=== PATIENT | male | born 1950 | race Asian ===

== ENCOUNTER 2019-12-12 19:58 | Inpatient (IN) | payer MEDICARE, OTHER ==
[~2019-12-12] VITALS: Ht 157.5 cm; Wt 65.6 kg
[2019-12-12] MEDS ORDERED: Morphine Sulfate 2mg/ml Inj(IV/IM USE ONLY) IVP ONE (20:15)
[2019-12-12] MEDS ORDERED: Ketorolac 60mg Inj IM ONE (20:30)
--- NOTE | 2019-12-12 20:43 | Emergency Room Report ---
History of Present Illness General Chief Complaint: Lower Extremity Injury Source: Patient Present Illness HPI Patient is a 69-year-old male who presents after increased left lower extremity pain. Patient had a fall injury while walking. Patient states that he had twisted his ankle and had felt that it had become unstable. Patient had been brought in by EMS. Has been unable to bear weight. Denies any other injuries other than his lower extremity. Prior history of type 2 diabetes. Denies any lacerations. 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 Patient History Past Medical History: see triage record Reviewed Nursing Documentation: PMH: Agreed; PSxH: Agreed Nursing Documentation-PMH Past Medical History: No History, Except For Hx Diabetes: Yes Review of Systems All Other Systems: negative except mentioned in HPI Physical Exam Vital Signs Date Time Temp Pulse Resp B/P (MAP) Pulse Ox O2 Delivery O2 Flow Rate FiO2 12/12/19 19:59 98.2 80 16 140/72 (94) 100 Room Air General Appearance: well appearing, no apparent distress, alert, GCS 15 Head: normocephalic, atraumatic ENT: hearing grossly normal, normal voice Neck: full range of motion, supple Respiratory: no respiratory distress, speaking full sentences Cardiovascular #1: normal inspection, no edema Gastrointestinal: normal inspection, soft Musculoskeletal: other - Deformity, swelling left ankle Neurologic: alert, motor strength/tone normal, armor reconnaissance specialist III-XII nml as tested, oriented x3, other - Able to wiggle toes Psychiatric: mood/affect normal Skin: no rash Medical Decision Making Diagnostic Impression: Primary Impression: Ankle fracture, left Additional Impressions: Fall Diabetes ER Course Patient presented for ankle pain. Differential diagnosis include was not limited to fracture, dislocation, sprain among others. X-ray imaging showed trimalleolar fracture with some slight subluxation posteriorly. Patient was placed in a 3 sided splint. He was noted to be neuro vascularly intact. Patient was placed in a 3 sided splint. He was noted to have some pain to the left foot and patient was given pain medications. Patient was neurovascular intact after splinting. He was noted to have improvement in pain after splinting and elevation. Dr. Rajendra Parker was contacted for inpatient management. Dr. Todd Amaya was contacted for orthopedic consult. Labs Test 12/12/19 20:18 White Blood Count 8.0 K/UL (4.8-10.8) Red Blood Count 4.50 M/UL (4.70-6.10) Hemoglobin 14.6 G/DL (14.2-18.0) Hematocrit 42.8 % (42.0-52.0) Mean Corpuscular Volume 95 FL (80-99) Mean Corpuscular Hemoglobin 32.5 PG (27.0-31.0) Mean Corpuscular Hemoglobin Concent 34.2 G/DL (32.0-36.0) Red Cell Distribution Width 11.5 % (11.6-14.8) Platelet Count 193 K/UL (150-450) Mean Platelet Volume 6.3 FL (6.5-10.1) Neutrophils (%) (Auto) 75.4 % (45.0-75.0) Lymphocytes (%) (Auto) 15.0 % (20.0-45.0) Monocytes (%) (Auto) 7.8 % (1.0-10.0) Eosinophils (%) (Auto) 0.7 % (0.0-3.0) Basophils (%) (Auto) 1.0 % (0.0-2.0) Prothrombin Time 11.0 SEC (9.30-11.50) Prothromb Time International Ratio 1.0 (0.9-1.1) Activated Partial Thromboplast Time 26 SEC (23-33) Sodium Level 140 MMOL/L (136-145) Potassium Level 3.7 MMOL/L (3.5-5.1) Chloride Level 103 MMOL/L (98-107) Carbon Dioxide Level 27 MMOL/L (21-32) Anion Gap 10 mmol/L (5-15) Blood Urea Nitrogen 21 mg/dL (7-18) Creatinine 1.3 MG/DL (0.55-1.30) Estimat Glomerular Filtration Rate 54.6 mL/min (>60) Glucose Level 201 MG/DL (74-106) Calcium Level 8.9 MG/DL (8.5-10.1) Total Bilirubin 0.5 MG/DL (0.2-1.0) Aspartate Amino Transf (AST/SGOT) 15 U/L (15-37) Alanine Aminotransferase (ALT/SGPT) 30 U/L (12-78) Alkaline Phosphatase 78 U/L (46-116) Total Protein 7.0 G/DL (6.4-8.2) Albumin 3.9 G/DL (3.4-5.0) Globulin 3.1 g/dL Albumin/Globulin Ratio 1.3 (1.0-2.7) Last Vital Signs Date Time Temp Pulse Resp B/P (MAP) Pulse Ox O2 Delivery O2 Flow Rate FiO2 12/12/19 19:59 98.2 80 16 140/72 (94) 100 Room Air Status: improved Disposition: HOME, SELF-CARE Condition: Stable Referrals: NON PHYSICIAN (PCP) Anthony Eduardo MD Dec 12, 2019 20:43
[2019-12-12 21:12] LABS: EOSINOPHILS % (AUTO) 0.7 % (0.0-3.0); HEMATOCRIT 42.8 % (42.0-52.0); HEMOGLOBIN 14.6 G/DL (14.2-18.0); MEAN CORPUSCULAR VOLUME 95 FL (80-99); MONOCYTES % (AUTO) 7.8 % (1.0-10.0); NEUTROPHILS % (AUTO) 75.4 % (45.0-75.0); PLATELET COUNT 193 K/UL (150-450); RED CELL DISTRIBUTION WIDTH 11.5 % (11.6-14.8)
[2019-12-12 21:33] LABS: ANION GAP 10 mmol/L (5-15); BLOOD UREA NITROGEN 21 mg/dL (7-18); CALCIUM 8.9 MG/DL (8.5-10.1); CARBON DIOXIDE 27 MMOL/L (21-32); CHLORIDE 103 MMOL/L (98-107); CREATININE 1.3 MG/DL (0.55-1.30); POTASSIUM 3.7 MMOL/L (3.5-5.1); SODIUM 140 MMOL/L (136-145)
[2019-12-12] MEDS ORDERED: METFORMIN HCL850 M1 ORAL (21:33)
[2019-12-12] MEDS ORDERED: CRESTOR40 MG ORAL (21:33)
[2019-12-12] MEDS ORDERED: LANTUS SOL100 UNIT/1 SUBQ (21:33)
[2019-12-12] MEDS ORDERED: GLIPIZIDE5 MG ORAL (21:33)
[2019-12-12 21:37] LABS: ALANINE AMINOTRANSFERASE 30 U/L (12-78); ALBUMIN 3.9 G/DL (3.4-5.0); ALBUMIN/GLOBULIN RATIO 1.3 (1.0-2.7); ALKALINE PHOSPHATASE 78 U/L (46-116); ASPARTATE AMINO TRANSFERASE 15 U/L (15-37); BILIRUBIN,TOTAL 0.5 MG/DL (0.2-1.0)
[2019-12-12 22:15] VITALS: BP 125/69
[2019-12-12] MEDS ORDERED: Morphine Sulfate 2mg/ml Inj(IV/IM USE ONLY) IVP PRN (23:00)
[2019-12-13] VITALS: BP 125/68
[2019-12-13 04:00] VITALS: BP 129/70
[2019-12-13] MEDS: NovoLOG Insulin Flexpen SUBQ SCH ×4 (06:07→21:16)
[2019-12-13 08:00] VITALS: BP 126/65
[2019-12-13] MEDS: metFORMIN 500mg tab ORAL SCH (09:06)
[2019-12-13] MEDS: GlipiZIDE 5mg tab ORAL SCH (09:06)
[2019-12-13 09:19] LABS: BASOPHILS % (AUTO) 0.7 % (0.0-2.0); EOSINOPHILS % (AUTO) 0.8 % (0.0-3.0); HEMATOCRIT 38.9 % (42.0-52.0); HEMOGLOBIN 13.5 G/DL (14.2-18.0); LYMPHOCYTES % (AUTO) 17.7 % (20.0-45.0); MEAN CORPUSCULAR VOLUME 93 FL (80-99); MONOCYTES % (AUTO) 6.8 % (1.0-10.0); PLATELET COUNT 164 K/UL (150-450); RED BLOOD COUNT 4.18 M/UL (4.70-6.10); RED CELL DISTRIBUTION WIDTH 11.1 % (11.6-14.8); WHITE BLOOD COUNT 7.1 K/UL (4.8-10.8)
[2019-12-13 09:30] LABS: ANION GAP 6 mmol/L (5-15); BLOOD UREA NITROGEN 23 mg/dL (7-18); CALCIUM 8.6 MG/DL (8.5-10.1); CARBON DIOXIDE 29 MMOL/L (21-32); CHLORIDE 105 MMOL/L (98-107); CREATININE 1.2 MG/DL (0.55-1.30); POTASSIUM 3.5 MMOL/L (3.5-5.1); SODIUM 140 MMOL/L (136-145)
[2019-12-13] MEDS: Heparin 5000 units/ml inj SUBQ SCH ×2 (11:19→21:13)
[2019-12-13 12:00] VITALS: BP 114/56
[2019-12-13] MEDS: Morphine Sulfate 2mg/ml Inj(IV/IM USE ONLY) IVP PRN ×2 (14:44→19:55)
--- NOTE | 2019-12-13 15:00 | History and Physical Report ---
DATE OF ADMISSION: 12/12/2019 DATE AND TIME SEEN: 12/13/2019 at 2 p.m. CONSULTANTS: 1. Milton Bach MD. 2. Jovanni Amaya MD. CHIEF COMPLAINT: Fall, fracture left ankle. BRIEF HISTORY: This is a 69-year-old male, who lives at home, apparently tripped, fell down, struck his left ankle, and had a lot of pain. Came to [place], diagnosed with left ankle fracture. Admitted to medical floor. Currently, calm, in bed. No complaint other than slight ankle pain. No chest pain. No shortness of breath. No nausea, vomiting, or diarrhea. Patient did not lose consciousness or strike head in other way. PAST MEDICAL HISTORY: Diabetes. PAST SURGICAL HISTORY: None. MEDICATIONS: Heparin, glipizide, metformin, morphine, IV fluids, Zofran, ketorolac. ALLERGIES: Denies. SOCIAL HISTORY: Positive smoking. No alcohol. No intravenous drug abuse. FAMILY HISTORY: Noncontributory. PHYSICAL EXAMINATION: GENERAL: Calm in bed, oriented x3, no acute distress. VITAL SIGNS: Temperature is 98 degrees, pulse 78, respirations 21, blood pressure 114/56. CARDIOVASCULAR: No murmur. LUNGS: . ABDOMEN: Bowel sounds distant. EXTREMITIES: No cyanosis or edema. Left ankle in splint. NEUROLOGIC: Patient moves all extremities, but slightly weak. LABORATORY AND DIAGNOSTIC DATA: Labs at this time are hemoglobin and hematocrit 13/30, otherwise CBC is normal. BMP shows BUN 23, glucose 176, otherwise normal. INR is 1.0. ASSESSMENT: 1. Fall. 2. Fracture left ankle. 3. Diabetes. PLAN: 1. Blood sugar, pain control. 2. Dietary followup. 3. PT, dietary evaluation. 4. CBC, BMP in the morning. 5. Pending Cardiology clearance for orthopedic surgery. Rajendra Parker D.O. DR: ROBIN JOB#: [id number] CC:
--- NOTE | 2019-12-13 15:45 | Diagnostic Imaging Report ---
Indication: Left ankle pain Technique: 3 views of the left ankle Comparison: none Findings: There is an oblique fracture of the distal fibula. This is displaced posteriorly and laterally by about 7 mm. There is a transverse minimally displaced fracture of the medial malleolus. There is a minimally displaced posterior malleolar fracture. There is also a small avulsion fracture of the anterior corner of the distal tibia. There is subluxation of the talus laterally as well as widening of the joint space anteriorly. Impression: Trimalleolar fracture with associated slight subluxation of the tibiotalar joint
--- NOTE | 2019-12-13 15:49 | Diagnostic Imaging Report ---
Indication: Chest pain Technique: One view of the chest Comparison: none Findings: Small streaky right perihilar opacity is noted. May represent some atelectasis. Lungs and pleural spaces are otherwise clear. The heart size is normal. Impression: Right perihilar atelectasis No acute process otherwise
[2019-12-13 15:59] VITALS: BP 124/69
--- NOTE | 2019-12-13 17:41 | Cardiac Electrophysiology PN ---
Subjective Subjective Seen and examined.Consult dictated. [id number] No HTN or CAD or CHF. ECG no acute ischemic changes. If Echo shows no critical finding, Cleared at moderate risk in view of age and DM to proceed with Ankle surgery Objective Last 24 Hour Vital Signs Date Time Temp Pulse Resp B/P (MAP) Pulse Ox O2 Delivery O2 Flow Rate FiO2 12/13/19 15:59 97.9 65 20 124/69 (87) 97 12/13/19 15:14 98.1 12/13/19 12:00 98.1 70 21 114/56 (75) 99 12/13/19 09:00 Room Air 12/13/19 08:00 98.3 77 20 126/65 (85) 98 12/13/19 04:00 99.0 71 17 129/70 (89) 95 12/13/19 00:00 99.4 72 18 125/68 (87) 96 12/12/19 23:30 Room Air 12/12/19 22:15 98.9 73 18 125/69 (87) 95 12/12/19 22:12 98.2 78 18 139/75 99 Room Air 12/12/19 21:02 98.2 12/12/19 19:59 98.2 80 16 140/72 (94) 100 Room Air Intake and Output 12/12/19 12/13/19 19:00 07:00 Intake Total 400 ml Output Total 600 ml Balance -200 ml Intake Oral 400 ml Output Urine Total 600 ml Laboratory Tests Test 12/12/19 20:18 12/12/19 22:49 12/13/19 06:07 12/13/19 08:30 White Blood Count 8.0 K/UL (4.8-10.8) 7.1 K/UL (4.8-10.8) Red Blood Count 4.50 M/UL (4.70-6.10) L 4.18 M/UL (4.70-6.10) L Hemoglobin 14.6 G/DL (14.2-18.0) 13.5 G/DL (14.2-18.0) L Hematocrit 42.8 % (42.0-52.0) 38.9 % (42.0-52.0) L Mean Corpuscular Volume 95 FL (80-99) 93 FL (80-99) Mean Corpuscular Hemoglobin 32.5 PG (27.0-31.0) H 32.3 PG (27.0-31.0) H Mean Corpuscular Hemoglobin Concent 34.2 G/DL (32.0-36.0) 34.7 G/DL (32.0-36.0) Red Cell Distribution Width 11.5 % (11.6-14.8) L 11.1 % (11.6-14.8) L Platelet Count 193 K/UL (150-450) 164 K/UL (150-450) Mean Platelet Volume 6.3 FL (6.5-10.1) L 6.1 FL (6.5-10.1) L Neutrophils (%) (Auto) 75.4 % (45.0-75.0) H 74.0 % (45.0-75.0) Lymphocytes (%) (Auto) 15.0 % (20.0-45.0) L 17.7 % (20.0-45.0) L Monocytes (%) (Auto) 7.8 % (1.0-10.0) 6.8 % (1.0-10.0) Eosinophils (%) (Auto) 0.7 % (0.0-3.0) 0.8 % (0.0-3.0) Basophils (%) (Auto) 1.0 % (0.0-2.0) 0.7 % (0.0-2.0) Prothrombin Time 11.0 SEC (9.30-11.50) Prothromb Time International Ratio 1.0 (0.9-1.1) Activated Partial Thromboplast Time 26 SEC (23-33) Sodium Level 140 MMOL/L (136-145) 140 MMOL/L (136-145) Potassium Level 3.7 MMOL/L (3.5-5.1) 3.5 MMOL/L (3.5-5.1) Chloride Level 103 MMOL/L (98-107) 105 MMOL/L (98-107) Carbon Dioxide Level 27 MMOL/L (21-32) 29 MMOL/L (21-32) Anion Gap 10 mmol/L (5-15) 6 mmol/L (5-15) Blood Urea Nitrogen 21 mg/dL (7-18) H 23 mg/dL (7-18) H Creatinine 1.3 MG/DL (0.55-1.30) 1.2 MG/DL (0.55-1.30) Estimat Glomerular Filtration Rate 54.6 mL/min (>60) 59.9 mL/min (>60) Glucose Level 201 MG/DL (74-106) H 176 MG/DL (74-106) H Calcium Level 8.9 MG/DL (8.5-10.1) 8.6 MG/DL (8.5-10.1) Total Bilirubin 0.5 MG/DL (0.2-1.0) Aspartate Amino Transf (AST/SGOT) 15 U/L (15-37) Alanine Aminotransferase (ALT/SGPT) 30 U/L (12-78) Alkaline Phosphatase 78 U/L (46-116) Total Protein 7.0 G/DL (6.4-8.2) Albumin 3.9 G/DL (3.4-5.0) Globulin 3.1 g/dL Albumin/Globulin Ratio 1.3 (1.0-2.7) POC Whole Blood Glucose 215 MG/DL (74-106) H 108 MG/DL (74-106) H Test 12/13/19 11:21 12/13/19 16:37 POC Whole Blood Glucose 166 MG/DL (74-106) H 137 MG/DL (74-106) H Microbiology Date/Time Source Procedure Growth Status 12/12/19 21:13 Nasopharynx SARS-CoV-2 RdRp Gene Assay - Final Complete Milton Bach MD Dec 13, 2019 17:41
--- NOTE | 2019-12-13 18:45 | Consultation ---
DATE OF CONSULTATION: 12/13/2019 CARDIOLOGY CONSULTATION CONSULTING PHYSICIAN: Milton Bach MD. REFERRING PHYSICIAN: Rajendra Parker DO. REASON FOR CONSULTATION: Preoperative clearance prior to ankle surgery. HISTORY OF PRESENT ILLNESS: Patient is a 69-year-old gentleman with history of diabetes who presented to the emergency room after a trip and fall while walking that resulted in left lower extremity pain. Patient had twisted his ankle. Patient was brought in by paramedics. Patient was unable to bear weight. X-rays showed left ankle fracture. Patient is being considered for surgery by Dr. Jovanni Amaya for trimalleolar fracture. Cardiology consultation was requested for preoperative clearance. REVIEW OF SYSTEMS: Negative other than what was mentioned in the history of present illness. PAST MEDICAL HISTORY: As mentioned above. FAMILY HISTORY: Noncontributory. SOCIAL HISTORY: He lives at home. Does not smoke or drink alcohol. PHYSICAL EXAMINATION: VITAL SIGNS: Blood pressure is 124/69, pulse 65, respirations 18, and temperature 97.9 degrees. HEAD AND NECK: Showed no JVD or carotid bruits. LUNGS: Clear. CARDIOVASCULAR: Regular S1 and S2 with no gallop or murmur. ABDOMEN: Soft. EXTREMITIES: No pitting edema. The left foot is in a cast. LABORATORY AND DIAGNOSTIC STUDIES: His labs show white count 7, hemoglobin 13, hematocrit 39, and platelet count of 164. Sodium 140, potassium 3.5, BUN of 22, creatinine 1.2, and glucose of 176. His EKG shows sinus rhythm with left anterior fascicular block. ASSESSMENT AND PLAN: 1. Status post nonsyncopal fall resulting in trimalleolar fracture. Patient denies any prior myocardial infarction or coronary artery disease or congestive heart failure. His EKG shows sinus rhythm with no acute ST-T wave abnormality and the left anterior fascicular block. We will get an echocardiogram to evaluate for ejection fraction and wall motion abnormality. patient should be stable to undergo ankle surgery and relatively low risk surgery. 2. Diabetes, on metformin and glipizide as well as insulin. Thank you very much, Dr. Parker for allowing me to participate in the care of this patient. Please do not hesitate to contact me for any questions regarding my evaluation. Milton Bach M.D. DR: KEISHA JOB#: [id number] CC:
[2019-12-13 20:00] VITALS: BP 130/64
[2019-12-14] VITALS (19 sets, daily range): BP systolic 122–164; BP diastolic 61–96
[2019-12-14] MEDS ORDERED: D5 1/2NS 1,000 ML IV SCH
[2019-12-14] MEDS: Morphine Sulfate 2mg/ml Inj(IV/IM USE ONLY) IVP PRN ×3 (00:01→08:19)
[2019-12-14 05:36] LABS: EOSINOPHILS % (AUTO) 1.2 % (0.0-3.0); HEMATOCRIT 36.7 % (42.0-52.0); LYMPHOCYTES % (AUTO) 22.1 % (20.0-45.0); MEAN CORPUSCULAR VOLUME 93 FL (80-99); MONOCYTES % (AUTO) 9.2 % (1.0-10.0); NEUTROPHILS % (AUTO) 66.4 % (45.0-75.0); PLATELET COUNT 157 K/UL (150-450); RED BLOOD COUNT 3.95 M/UL (4.70-6.10); RED CELL DISTRIBUTION WIDTH 11.4 % (11.6-14.8); WHITE BLOOD COUNT 6.2 K/UL (4.8-10.8)
[2019-12-14 05:44] LABS: ANION GAP 6 mmol/L (5-15); BLOOD UREA NITROGEN 18 mg/dL (7-18); CALCIUM 8.1 MG/DL (8.5-10.1); CARBON DIOXIDE 28 MMOL/L (21-32); CHLORIDE 107 MMOL/L (98-107); CREATININE 1.1 MG/DL (0.55-1.30); POTASSIUM 3.6 MMOL/L (3.5-5.1); SODIUM 141 MMOL/L (136-145)
[2019-12-14] MEDS: NovoLOG Insulin Flexpen SUBQ SCH ×4 (06:11→21:14)
[2019-12-14] MEDS: metFORMIN 500mg tab ORAL SCH (09:00)
[2019-12-14] MEDS: GlipiZIDE 5mg tab ORAL SCH (09:00)
[2019-12-14] MEDS: Heparin 5000 units/ml inj SUBQ SCH ×2 (09:00→21:00)
--- NOTE | 2019-12-14 09:04 | General Progress Note ---
Assessment/Plan Problem List: (1) Diabetes ICD Codes: E11.9 - Type 2 diabetes mellitus without complications SNOMED: 04106547 (2) Fall ICD Codes: W19.XXXA - Unspecified fall, initial encounter SNOMED: 4326381, 342486012 (3) Ankle fracture, left ICD Codes: S82.892A - Other fracture of left lower leg, initial encounter for closed fracture SNOMED: 23613615 Status: unchanged Assessment/Plan: pt diet bs control pain control cbc bmp am ortho sx Subjective Constitutional: Reports: weakness Allergies: Coded Allergies: No Known Allergies (Unverified , 12/12/19) All Systems: reviewed and negative except above Subjective calm in bed Objective Last 24 Hour Vital Signs Date Time Temp Pulse Resp B/P (MAP) Pulse Ox O2 Delivery O2 Flow Rate FiO2 12/14/19 08:49 98.1 12/14/19 08:44 Room Air 12/14/19 08:00 98.1 69 16 123/65 (84) 98 12/14/19 04:19 98.5 73 18 129/70 (89) 95 12/14/19 00:00 98.7 73 18 126/63 (84) 95 12/13/19 21:00 Room Air 12/13/19 20:00 98.6 68 18 130/64 (86) 98 12/13/19 15:59 97.9 65 20 124/69 (87) 97 12/13/19 12:00 98.1 70 21 114/56 (75) 99 Intake and Output 12/13/19 12/14/19 19:00 07:00 Intake Total 2440 ml 1060 ml Output Total 950 ml 1150 ml Balance 1490 ml -90 ml Intake Oral 1660 ml 400 ml IV Total 780 ml 660 ml Output Urine Total 950 ml 1150 ml # Bowel Movements 1 Laboratory Tests 12/13/19 11:21: POC Whole Blood Glucose 166H 12/13/19 16:37: POC Whole Blood Glucose 137H 12/13/19 21:14: POC Whole Blood Glucose [Pending] 12/14/19 05:10: White Blood Count 6.2, Red Blood Count 3.95L, Hemoglobin 13.0L, Hematocrit 36.7L , Mean Corpuscular Volume 93, Mean Corpuscular Hemoglobin 32.9H, Mean Corpuscular Hemoglobin Concent 35.4, Red Cell Distribution Width 11.4L, Platelet Count 157, Mean Platelet Volume 5.6L, Neutrophils (%) (Auto) 66.4, Lymphocytes (%) (Auto) 22.1, Monocytes (%) (Auto) 9.2, Eosinophils (%) (Auto) 1.2, Basophils (%) (Auto) 1.0, Sodium Level 141, Potassium Level 3.6, Chloride Level 107, Carbon Dioxide Level 28, Anion Gap 6, Blood Urea Nitrogen 18, Creatinine 1.1, Estimat Glomerular Filtration Rate > 60, Glucose Level 148H, Hemoglobin A1c 7.0H, Calcium Level 8.1L 12/14/19 06:10: POC Whole Blood Glucose 139H Height (Feet): 5 Height (Inches): 2.00 Weight (Pounds): 144 General Appearance: alert EENT: normal ENT inspection Neck: normal alignment Cardiovascular: normal peripheral pulses, normal rate, regular rhythm Respiratory/Chest: chest wall non-tender, lungs clear, normal breath sounds Abdomen: normal bowel sounds, non tender, soft Extremities: normal inspection Edema: no edema noted Arm (L), no edema noted Arm (R), no edema noted Leg (L), no edema noted Leg (R), no edema noted Pedal (L), no edema noted Pedal (R), no edema noted Generalized Neurologic: responsive, motor weakness Skin: normal pigmentation, warm/dry Rajendra Parker DO Dec 14, 2019 09:04
[2019-12-14] MEDS ORDERED: NeoSporin Gu Irrig 1ml Amp IRRIG ONE (10:45)
[2019-12-14] MEDS ORDERED: Bacitracin 50000 Units Vial ONE (10:45)
[2019-12-14] MEDS ORDERED: Bupivacaine 0.25% Inj 30ml INJ ONE (10:45)
[2019-12-14] MEDS ORDERED: LR 1000ml ONE (11:30)
[2019-12-14] MEDS ORDERED: Sterile Water Irrig 1000ml IRRIG ONE (11:30)
[2019-12-14] MEDS ORDERED: NS Irrig 1000ml ONE (11:30)
--- NOTE | 2019-12-14 11:34 | Pre-Procedure Note/Attestation ---
Pre-Procedure Note/Attestation Complete Prior to Procedure Planned Procedure: left Procedure Narrative: ankle orif Indications for Procedure Pre-Operative Diagnosis: left ankle fracture Attestation I attest that I discussed the nature of the procedure; its benefits; risks and complications; and alternatives (and the risks and benefits of such alternatives ), prior to the procedure, with the patient (or the patient's legal clearance representative). I attest that, if there was a reasonable possibility of needing a blood transfusion, the patient (or the patient's legal clearance representative) was given the [facility] standardized written summary, pursuant to the [place]oo[employer] Blood Safety Act ([place] Health and Safety Code # 1645, as amended). I attest that I re-evaluated the patient just prior to the surgery and that there has been no change in the patient's H&P, except as documented below: Jovanni Amaya MD Dec 14, 2019 11:34
--- NOTE | 2019-12-14 11:34 | Operative Note - PDOC ---
Operative Note Operative Note Pre-op Diagnosis: left ankle fracture Procedure: see op report Post-op Diagnosis: same as pre-op plus Operative Findings: consistent w/pre-op dx studies Anesthesia: regional Specimen: none Complications: none Condition: stable Estimated Blood Loss: none Implant(s) used?: Yes Jovanni Amaya MD Dec 14, 2019 11:34
[2019-12-14] MEDS ORDERED: LR 1000ml 1,000 ML IVLG SCH (11:36)
[2019-12-14] MEDS ORDERED: Lidocaine 1% MPF 10mg/ml 5ml ONE (11:41)
[2019-12-14] MEDS ORDERED: Sodium Chloride 10ml vial INJ ONE (11:41)
--- NOTE | 2019-12-14 11:41 | Anethesia Preoperative Eval ---
Anesthesia Pre-op PMH/ROS General Date of Evaluation: Dec 14, 2019 Time of Evaluation: 11:31 Anesthesiologist: Andres ASA Score: ASA 3 Mallampati Score Class I : Soft palate, uvula, fauces, pillars visible Class II: Soft palate, uvula, fauces visible Class III: Soft palate, base of uvula visible Class IV: Only hard plate visible Mallampati Classification: Class III Surgeon: Jose Luis Diagnosis: L Ankle Fx Surgical Procedure: ORIF L Ankle Anesthesia History: none Family History: no anesthesia problems Allergies: Coded Allergies: No Known Allergies (Unverified , 12/12/19) Medications: see eMAR Patient NPO?: Yes Past Medical History Cardiovascular: Reports: HTN, other - HL Endocrine: Reports: DM Hematology/Immune: Reports: anemia Anesthesia Pre-op Phys. Exam Physician Exam Last Vital Signs Date Time Temp Pulse Resp B/P (MAP) Pulse Ox O2 Delivery O2 Flow Rate FiO2 12/14/19 08:49 98.1 12/14/19 08:44 Room Air 12/14/19 08:00 69 16 123/65 (84) 98 Constitutional: NAD Neurologic: CN 2-12 intact Cardiovascular: RRR Respiratory: CTA Gastrointestinal: S/NT/ND Airway Exam Mallampati Score: Class III MO: limited ROM: limited Teeth: missing, intact Anesthesia Pre-op A/P Labs Hematology Test 12/14/19 05:10 White Blood Count 6.2 K/UL (4.8-10.8) Red Blood Count 3.95 M/UL (4.70-6.10) L Hemoglobin 13.0 G/DL (14.2-18.0) L Hematocrit 36.7 % (42.0-52.0) L Mean Corpuscular Volume 93 FL (80-99) Mean Corpuscular Hemoglobin 32.9 PG (27.0-31.0) H Mean Corpuscular Hemoglobin Concent 35.4 G/DL (32.0-36.0) Red Cell Distribution Width 11.4 % (11.6-14.8) L Platelet Count 157 K/UL (150-450) Mean Platelet Volume 5.6 FL (6.5-10.1) L Neutrophils (%) (Auto) 66.4 % (45.0-75.0) Lymphocytes (%) (Auto) 22.1 % (20.0-45.0) Monocytes (%) (Auto) 9.2 % (1.0-10.0) Eosinophils (%) (Auto) 1.2 % (0.0-3.0) Basophils (%) (Auto) 1.0 % (0.0-2.0) Chemistry Test 12/13/19 16:37 12/13/19 21:14 12/14/19 05:10 12/14/19 06:10 POC Whole Blood Glucose 137 MG/DL (74-106) H Pending 139 MG/DL (74-106) H Sodium Level 141 MMOL/L (136-145) Potassium Level 3.6 MMOL/L (3.5-5.1) Chloride Level 107 MMOL/L (98-107) Carbon Dioxide Level 28 MMOL/L (21-32) Anion Gap 6 mmol/L (5-15) Blood Urea Nitrogen 18 mg/dL (7-18) Creatinine 1.1 MG/DL (0.55-1.30) Estimat Glomerular Filtration Rate > 60 mL/min (>60) Glucose Level 148 MG/DL (74-106) H Hemoglobin A1c 7.0 % (4.3-6.0) H Calcium Level 8.1 MG/DL (8.5-10.1) L Risk Assessment & Plan Assessment: ASA 3 Plan: GA, SED Status Change Before Surgery: No Pre-Antibiotics Dru Gram Ancef IV Given Within 1 Hr of Incision: Yes Time Given: 12:06 Zak Campos MD Dec 14, 2019 11:41
[2019-12-14] MEDS ORDERED: Ketamine 500mg/10ml vial ONE (11:42)
[2019-12-14] MEDS ORDERED: Hydromorphone 0.5mg/0.5ml inj IVP PRN (11:45)
[2019-12-14] MEDS ORDERED: DiphenhydrAMINE 50mg/ml Inj IVP PRN (11:45)
[2019-12-14] MEDS ORDERED: Meperidine 25mg/0.5ml Inj (FOR RIGORS ONLY) IV PRN (11:45)
[2019-12-14] MEDS ORDERED: fentaNYL 100 mcg/2 mL IV PRN (11:45)
[2019-12-14] MEDS ORDERED: oxyCODONE HCL/Acetaminophen 5/325mg ORAL PRN (11:45)
[2019-12-14] MEDS ORDERED: HYDROcodone/Acetamin 5/325 tab ORAL PRN ×3 (11:45→15:45)
[2019-12-14] MEDS ORDERED: Acetaminophen (Non formulary) 100 ML IV ONE (11:45)
[2019-12-14] MEDS ORDERED: Atropine Sulfate 0.4mg/ml inj IVP PRN (11:45)
[2019-12-14] MEDS ORDERED: Midazolam 2mg/2ml Inj IVP PRN (11:45)
[2019-12-14] MEDS ORDERED: Metoclopramide 10mg/2ml Inj IVP PRN (11:45)
[2019-12-14] MEDS ORDERED: Labetalol 5mg/ml 20ml vial IV PRN (11:45)
[2019-12-14] MEDS ORDERED: HYDROcodone/Acetamin 7.5/325 tab ORAL PRN (11:45)
[2019-12-14] MEDS ORDERED: LORazepam Inj 2mg/ml 1ml IV PRN (11:45)
[2019-12-14] MEDS ORDERED: Lidocaine 1% Plain 30 ml INJ ONE (11:59)
--- NOTE | 2019-12-14 12:36 | Immediate Post-Op Evaluation ---
Immediate Post-Op Evalulation Immediate Post-Op Evalulation Procedure: ORIF L Ankle Date of Evaluation: Dec 14, 2019 Time of Evaluation: 13:47 IV Fluids: 600 LR Blood Products: 0 Estimated Blood Loss: 25 Urinary Output: 0 Blood Pressure Systolic: 152 Blood Pressure Diastolic: 96 Pulse Rate: 75 Respiratory Rate: 16 O2 Sat by Pulse Oximetry: 98 Temperature (Fahrenheit): 97.8 Pain Score (1-10): 2 Nausea: No Vomiting: No Complications 0 Patient Status: awake, reacts, patent, none Hydration Status: adequate Dru Gram Ancef IV Given Within 1 Hr of Incision: Yes Time Given: 12:06 Zak Campos MD Dec 14, 2019 12:36
[2019-12-14] MEDS ORDERED: fentaNYL 100 mcg/2 mL IV ONE (12:57)
--- NOTE | 2019-12-14 14:54 | Cardiac Electrophysiology PN ---
Assessment/Plan Assessment/Plan 1. Status post nonsyncopal fall resulting in trimalleolar fracture. Patient denies any prior myocardial infarction or coronary artery disease or congestive heart failure. His EKG shows sinus rhythm with no acute ST-T wave abnormality and the left anterior fascicular block. ECho NL EF. Patient was cleared and is undergoing ankle surgery by Dr Amaya 2. Diabetes, on metformin and glipizide as well as insulin. Subjective Subjective No HTN or CAD or CHF. ECG no acute ischemic changes. Echo shows Nl EF. Cleared at moderate risk to proceed with Ankle surgery Objective Last 24 Hour Vital Signs Date Time Temp Pulse Resp B/P (MAP) Pulse Ox O2 Delivery O2 Flow Rate FiO2 12/14/19 14:45 98.3 67 17 143/79 (100) 96 12/14/19 14:25 98.3 65 16 145/79 (101) 96 12/14/19 14:20 98.0 71 18 152/81 99 Nasal Cannula 3 12/14/19 14:05 65 14 155/78 99 Nasal Cannula 3 12/14/19 13:50 69 14 156/85 99 Simple Mask 6 12/14/19 13:40 72 16 155/86 100 Simple Mask 6 12/14/19 13:30 81 14 164/79 100 Simple Mask 6 12/14/19 13:25 79 13 158/94 100 Simple Mask 6 12/14/19 13:22 75 16 98 12/14/19 13:20 97.8 77 23 152/96 100 Simple Mask 6 12/14/19 08:49 98.1 12/14/19 08:44 Room Air 12/14/19 08:00 98.1 69 16 123/65 (84) 98 12/14/19 04:19 98.5 73 18 129/70 (89) 95 12/14/19 00:00 98.7 73 18 126/63 (84) 95 12/13/19 21:00 Room Air 12/13/19 20:00 98.6 68 18 130/64 (86) 98 12/13/19 15:59 97.9 65 20 124/69 (87) 97 Intake and Output 12/13/19 12/14/19 19:00 07:00 Intake Total 2440 ml 1060 ml Output Total 950 ml 1150 ml Balance 1490 ml -90 ml Intake Oral 1660 ml 400 ml IV Total 780 ml 660 ml Output Urine Total 950 ml 1150 ml # Bowel Movements 1 Laboratory Tests Test 12/13/19 16:37 12/13/19 21:14 12/14/19 05:10 12/14/19 06:10 POC Whole Blood Glucose 137 MG/DL (74-106) H Pending 139 MG/DL (74-106) H White Blood Count 6.2 K/UL (4.8-10.8) Red Blood Count 3.95 M/UL (4.70-6.10) L Hemoglobin 13.0 G/DL (14.2-18.0) L Hematocrit 36.7 % (42.0-52.0) L Mean Corpuscular Volume 93 FL (80-99) Mean Corpuscular Hemoglobin 32.9 PG (27.0-31.0) H Mean Corpuscular Hemoglobin Concent 35.4 G/DL (32.0-36.0) Red Cell Distribution Width 11.4 % (11.6-14.8) L Platelet Count 157 K/UL (150-450) Mean Platelet Volume 5.6 FL (6.5-10.1) L Neutrophils (%) (Auto) 66.4 % (45.0-75.0) Lymphocytes (%) (Auto) 22.1 % (20.0-45.0) Monocytes (%) (Auto) 9.2 % (1.0-10.0) Eosinophils (%) (Auto) 1.2 % (0.0-3.0) Basophils (%) (Auto) 1.0 % (0.0-2.0) Sodium Level 141 MMOL/L (136-145) Potassium Level 3.6 MMOL/L (3.5-5.1) Chloride Level 107 MMOL/L (98-107) Carbon Dioxide Level 28 MMOL/L (21-32) Anion Gap 6 mmol/L (5-15) Blood Urea Nitrogen 18 mg/dL (7-18) Creatinine 1.1 MG/DL (0.55-1.30) Estimat Glomerular Filtration Rate > 60 mL/min (>60) Glucose Level 148 MG/DL (74-106) H Hemoglobin A1c 7.0 % (4.3-6.0) H Calcium Level 8.1 MG/DL (8.5-10.1) L Test 12/14/19 14:47 POC Whole Blood Glucose 135 MG/DL (74-106) H Microbiology Date/Time Source Procedure Growth Status 12/12/19 21:13 Nasopharynx SARS-CoV-2 RdRp Gene Assay - Final Complete Objective HEAD AND NECK: Showed no JVD or carotid bruits. LUNGS: Clear. CARDIOVASCULAR: Regular S1 and S2 with no gallop or murmur. ABDOMEN: Soft. EXTREMITIES: No pitting edema. The left foot is in a cast. Milton Bach MD Dec 14, 2019 14:54
[2019-12-14] MEDS ORDERED: Hydromorphone 0.5mg/0.5ml inj SUBQ PRN (15:00)
--- NOTE | 2019-12-14 16:21 | Diagnostic Imaging Report ---
INDICATION: Pain, intraoperative TECHNIQUE: Intraoperative imaging Fluoroscopy time: 20 4. seconds Total dose: 0.96862 mGym2 Total number of images: 3 COMPARISON: A 08/08/2019 FINDINGS: Intraoperative images demonstrate surgical repair of previously demonstrated trimalleolar fracture using lateral side plate and screws for the fibular fracture and 2 surgical nails for the medial malleolar fracture. IMPRESSION: Intraoperative imaging, as described
--- NOTE | 2019-12-14 17:00 | Operative Note - Dictated ---
DATE OF OPERATION: 12/14/2019 PREOPERATIVE DIAGNOSIS: Left trimalleolar ankle fracture dislocation. POSTOPERATIVE DIAGNOSIS: Left trimalleolar ankle fracture dislocation. PROCEDURES: 1. Open reduction and internal fixation, left trimalleolar ankle fracture dislocation, plate and screw fixation. 2. Application of posterior splint. SURGEON: Jovanni Amaya MD. ANESTHESIA: Popliteal with general. INDICATION FOR PROCEDURE: The patient is a pleasant gentleman who sustained a trimalleolar/bimalleolar fracture dislocation of the left ankle indicative of operative fixation. Risks, limitations, expectations, and complications of procedure were discussed in detail including nonunion, malunion, risk of infection, risk of anesthesia, medical complications such as DVT, PE, mortality risk. All questions were addressed. DESCRIPTION OF PROCEDURE: After informed consent was obtained, the patient was taken to the operating room. The patient was placed under spinal anesthesia. Left leg was prepped and draped in a sterile manner. Time-out was performed. Standard lateral skin incision was made. Blunt dissection down to the fibula was performed. The fracture was identified and curetted. Reduction was performed. A lag screw was placed along with a lateral fibular plate with multiple cortical screws. Once the mortise was confirmed to be reduced anatomically on AP and lateral imaging, two additional percutaneous screws were placed to the medial malleolus along with two 40 mm partially-threaded percutaneous screws. Once that was done, AP and lateral imaging showed good reduction of the mortise, good overall placement of the hardware. At this point, the wound was copiously irrigated. Skin was closed using 2-0 Vicryl suture, 3-0 Vicryl suture, and 3-0 Monocryl sutures. Steri-Strips and posterior splint was applied. ESTIMATED BLOOD LOSS: 25 mL. COMPLICATIONS: None. SPECIMENS: None. IMPLANTS: Include Mateo lateral fibular plate with multiple cortical locking screws and two 40 mm partially-threaded 4-0 cannulated screws. Jovanni Amaya M.D. DR: BRITNEY JOB#: [id number] CC: MILEY
[2019-12-14] MEDS: Docusate 100mg cap ORAL SCH (17:55)
--- NOTE | 2019-12-14 18:14 | Consultation ---
DATE OF CONSULTATION: 12/12/2019 CHIEF COMPLAINT: Left ankle pain. HISTORY OF PRESENT ILLNESS: The patient is a pleasant 69-year-old gentleman who presents after a mechanical fall. He was brought to the emergency room, was diagnosed with left ankle fracture. Orthopedic consultation obtained for further care and recommendation. PAST MEDICAL HISTORY: Per intake chart. PAST SURGICAL HISTORY: Per intake chart. MEDICATIONS: Per intake chart. PHYSICAL EXAMINATION: GENERAL: The patient is resting comfortably in exam bed. VITAL SIGNS: Afebrile, stable vital signs. EXTREMITIES: Left ankle examination shows posterior splint was placed. IMAGING STUDY: Imaging study show bimalleolar ankle fracture dislocation with subluxation of tibiotalar joint. ASSESSMENT: 1. Left ankle fracture. 2. Diabetes. DISCUSSION: At this point, I am going to place him in a posterior splint. He will be admitted and get appropriate pain management. We will go ahead and obtain preop clearance to proceed with left ankle fixation. Jovanni Amaya M.D. DR: Katalina JOB#: [id number] CC:
--- NOTE | 2019-12-14 20:15 | Diagnostic Imaging Report ---
INDICATION: Pain, intraoperative TECHNIQUE: Intraoperative imaging Fluoroscopy time: 20 4. seconds Total dose: 0.72502 mGym2 Total number of images: 3 COMPARISON: A 08/08/2019 FINDINGS: Intraoperative images demonstrate surgical repair of previously demonstrated trimalleolar fracture using lateral side plate and screws for the fibular fracture and 2 surgical nails for the medial malleolar fracture. IMPRESSION: Intraoperative imaging, as described
[2019-12-14] MEDS: ceFAZolin sod 1 GM in D5W 55 ML IV SCH (20:17)
[2019-12-14] MEDS: oxyCONTIN 20mg tab ORAL SCH (20:32)
[2019-12-14] MEDS: HYDROmorphone 1mg/ml Carpuject SUBQ PRN (23:29)
[2019-12-15] VITALS: BP 126/68
[2019-12-15] MEDS: ceFAZolin sod 1 GM in D5W 55 ML IV SCH ×2 (03:48→12:09)
[2019-12-15] MEDS: HYDROmorphone 1mg/ml Carpuject SUBQ PRN ×3 (03:54→17:35)
[2019-12-15 04:00] VITALS: BP 121/63
[2019-12-15] MEDS: NovoLOG Insulin Flexpen SUBQ SCH ×3 (06:29→17:08)
[2019-12-15 07:14] LABS: ANION GAP 7 mmol/L (5-15); BLOOD UREA NITROGEN 16 mg/dL (7-18); CALCIUM 8.1 MG/DL (8.5-10.1); CARBON DIOXIDE 30 MMOL/L (21-32); CHLORIDE 104 MMOL/L (98-107); CREATININE 1.1 MG/DL (0.55-1.30); POTASSIUM 3.6 MMOL/L (3.5-5.1); SODIUM 141 MMOL/L (136-145)
[2019-12-15 07:28] LABS: BASOPHILS % (AUTO) 0.4 % (0.0-2.0); EOSINOPHILS % (AUTO) 1.3 % (0.0-3.0); HEMATOCRIT 37.1 % (42.0-52.0); HEMOGLOBIN 13.1 G/DL (14.2-18.0); LYMPHOCYTES % (AUTO) 15.5 % (20.0-45.0); MEAN CORPUSCULAR VOLUME 93 FL (80-99); MONOCYTES % (AUTO) 8.5 % (1.0-10.0); NEUTROPHILS % (AUTO) 74.3 % (45.0-75.0); PLATELET COUNT 154 K/UL (150-450); RED BLOOD COUNT 3.98 M/UL (4.70-6.10); RED CELL DISTRIBUTION WIDTH 11.2 % (11.6-14.8); WHITE BLOOD COUNT 7.6 K/UL (4.8-10.8)
[2019-12-15 08:00] VITALS: BP 139/77
[2019-12-15] MEDS: Docusate 100mg cap ORAL SCH ×3 (08:35→17:09)
[2019-12-15] MEDS: oxyCONTIN 20mg tab ORAL SCH (08:36)
[2019-12-15] MEDS: Heparin 5000 units/ml inj SUBQ SCH (08:37)
[2019-12-15] MEDS: GlipiZIDE 5mg tab ORAL SCH (08:38)
[2019-12-15] MEDS: metFORMIN 500mg tab ORAL SCH (08:38)
--- NOTE | 2019-12-15 09:12 | 48 Hour Post Anesthesia Eval ---
Post Anesthesia Evaluation Procedure: ORIF L Ankle Date of Evaluation: Dec 15, 2019 Time of Evaluation: 09:10 Blood Pressure Systolic: 139 0: 76 Pulse Rate: 68 Respiratory Rate: 20 Temperature (Fahrenheit): 97.8 O2 Sat by Pulse Oximetry: 98 Airway: patent Nausea: No Vomiting: No Pain Intensity: 3 Hydration Status: adequate Cardiopulmonary Status: stable Mental Status/LOC: patient returned to baseline Follow-up Care/Observations: n/a Post-Anesthesia Complications: none Follow-up care needed: N/A Doug Loja MD Dec 15, 2019 09:12
[2019-12-15 12:00] VITALS: BP 126/60
--- NOTE | 2019-12-15 13:09 | General Progress Note ---
Assessment/Plan Problem List: (1) Diabetes ICD Codes: E11.9 - Type 2 diabetes mellitus without complications SNOMED: 58515023 (2) Fall ICD Codes: W19.XXXA - Unspecified fall, initial encounter SNOMED: 1811536, 203901717 (3) Ankle fracture, left ICD Codes: S82.892A - Other fracture of left lower leg, initial encounter for closed fracture SNOMED: 46762157 Status: stable, progressing Assessment/Plan: pt diet bs control pain control cbc bmp am ortho aru eval Subjective Constitutional: Reports: weakness Allergies: Coded Allergies: No Known Allergies (Unverified , 12/12/19) All Systems: reviewed and negative except above Subjective calm in bed Objective Last 24 Hour Vital Signs Date Time Temp Pulse Resp B/P (MAP) Pulse Ox O2 Delivery O2 Flow Rate FiO2 12/15/19 12:00 98.5 74 20 126/60 (82) 93 12/15/19 09:12 68 20 98 12/15/19 09:00 Room Air 12/15/19 08:00 98.4 91 20 139/77 (97) 95 12/15/19 04:24 98.3 12/15/19 04:00 98.3 71 18 121/63 (82) 98 12/15/19 00:00 98.1 78 18 126/68 (87) 98 12/14/19 21:02 98.0 12/14/19 21:00 Room Air 12/14/19 20:00 98.2 75 18 122/65 (84) 97 12/14/19 18:15 98.0 72 18 141/69 (93) 95 12/14/19 17:15 97.6 79 18 126/61 (82) 94 12/14/19 16:15 97.6 70 17 127/61 (83) 98 12/14/19 15:45 97.7 62 18 142/77 (98) 97 12/14/19 15:15 97.7 62 18 142/78 (99) 98 12/14/19 15:00 97.4 62 21 143/79 (100) 97 12/14/19 14:45 98.3 67 17 143/79 (100) 96 12/14/19 14:25 98.3 65 16 145/79 (101) 96 12/14/19 14:20 98.0 71 18 152/81 99 Nasal Cannula 3 12/14/19 14:05 65 14 155/78 99 Nasal Cannula 3 12/14/19 13:50 69 14 156/85 99 Simple Mask 6 12/14/19 13:40 72 16 155/86 100 Simple Mask 6 12/14/19 13:30 81 14 164/79 100 Simple Mask 6 12/14/19 13:25 79 13 158/94 100 Simple Mask 6 12/14/19 13:22 75 16 98 12/14/19 13:20 97.8 77 23 152/96 100 Simple Mask 6 Intake and Output 12/14/19 12/15/19 19:00 07:00 Intake Total 1360 ml 400 ml Output Total 1000 ml 900 ml Balance 360 ml -500 ml Intake Oral 360 ml 400 ml IV Total 1000 ml Output Urine Total 1000 ml 900 ml Laboratory Tests 12/14/19 14:47: POC Whole Blood Glucose 135H 12/14/19 16:41: POC Whole Blood Glucose 168H 12/14/19 20:20: POC Whole Blood Glucose 174H 12/15/19 05:05: White Blood Count 7.6, Red Blood Count 3.98L, Hemoglobin 13.1L, Hematocrit 37.1L , Mean Corpuscular Volume 93, Mean Corpuscular Hemoglobin 33.0H, Mean Corpuscular Hemoglobin Concent 35.4, Red Cell Distribution Width 11.2L, Platelet Count 154, Mean Platelet Volume 6.3L, Neutrophils (%) (Auto) 74.3, Lymphocytes (%) (Auto) 15.5L, Monocytes (%) (Auto) 8.5, Eosinophils (%) (Auto) 1.3, Basophils (%) (Auto) 0.4, Sodium Level 141, Potassium Level 3.6, Chloride Level 104, Carbon Dioxide Level 30, Anion Gap 7, Blood Urea Nitrogen 16, Creatinine 1.1, Estimat Glomerular Filtration Rate > 60, Glucose Level 119H, Calcium Level 8.1L 12/15/19 06:25: POC Whole Blood Glucose 126H 12/15/19 11:55: POC Whole Blood Glucose 124H Height (Feet): 5 Height (Inches): 2.00 Weight (Pounds): 144 General Appearance: alert EENT: normal ENT inspection Neck: normal alignment Cardiovascular: normal peripheral pulses, normal rate, regular rhythm Respiratory/Chest: chest wall non-tender, lungs clear, normal breath sounds Abdomen: normal bowel sounds, non tender, soft Extremities: normal inspection Edema: no edema noted Arm (L), no edema noted Arm (R), no edema noted Leg (L), no edema noted Leg (R), no edema noted Pedal (L), no edema noted Pedal (R), no edema noted Generalized Neurologic: motor weakness Skin: normal pigmentation, warm/dry Rajendra Parker Dec 15, 2019 13:08
[2019-12-15] MEDS ORDERED: 1/2 NS 1000ml IV ONE (13:20)
[2019-12-15] MEDS ORDERED: D5 1/2NS 1000ml IV ONE (13:20)
--- NOTE | 2019-12-15 15:58 | Cardiac Electrophysiology PN ---
Assessment/Plan Assessment/Plan 1. Status post nonsyncopal fall resulting in trimalleolar fracture. Patient denies any prior myocardial infarction or coronary artery disease or congestive heart failure. His EKG shows sinus rhythm with no acute ST-T wave abnormality and the left anterior fascicular block. ECho NL EF. Patient was cleared S/P ankle surgery by Dr Amaya. SIMON field pending 2. Diabetes, on metformin and glipizide as well as insulin. Subjective Subjective ECG no acute ischemic changes. Echo shows Nl EF. S/P successful Ankle surgery Objective Last 24 Hour Vital Signs Date Time Temp Pulse Resp B/P (MAP) Pulse Ox O2 Delivery O2 Flow Rate FiO2 12/15/19 12:00 98.5 74 20 126/60 (82) 93 12/15/19 09:12 68 20 98 12/15/19 09:00 Room Air 12/15/19 08:00 98.4 91 20 139/77 (97) 95 12/15/19 04:24 98.3 12/15/19 04:00 98.3 71 18 121/63 (82) 98 12/15/19 00:00 98.1 78 18 126/68 (87) 98 12/14/19 21:02 98.0 12/14/19 21:00 Room Air 12/14/19 20:00 98.2 75 18 122/65 (84) 97 12/14/19 18:15 98.0 72 18 141/69 (93) 95 12/14/19 17:15 97.6 79 18 126/61 (82) 94 12/14/19 16:15 97.6 70 17 127/61 (83) 98 Intake and Output 12/14/19 12/15/19 19:00 07:00 Intake Total 1360 ml 400 ml Output Total 1000 ml 900 ml Balance 360 ml -500 ml Intake Oral 360 ml 400 ml IV Total 1000 ml Output Urine Total 1000 ml 900 ml Laboratory Tests Test 12/14/19 16:41 12/14/19 20:20 12/15/19 05:05 12/15/19 06:25 POC Whole Blood Glucose 168 MG/DL (74-106) H 174 MG/DL (74-106) H 126 MG/DL (74-106) H White Blood Count 7.6 K/UL (4.8-10.8) Red Blood Count 3.98 M/UL (4.70-6.10) L Hemoglobin 13.1 G/DL (14.2-18.0) L Hematocrit 37.1 % (42.0-52.0) L Mean Corpuscular Volume 93 FL (80-99) Mean Corpuscular Hemoglobin 33.0 PG (27.0-31.0) H Mean Corpuscular Hemoglobin Concent 35.4 G/DL (32.0-36.0) Red Cell Distribution Width 11.2 % (11.6-14.8) L Platelet Count 154 K/UL (150-450) Mean Platelet Volume 6.3 FL (6.5-10.1) L Neutrophils (%) (Auto) 74.3 % (45.0-75.0) Lymphocytes (%) (Auto) 15.5 % (20.0-45.0) L Monocytes (%) (Auto) 8.5 % (1.0-10.0) Eosinophils (%) (Auto) 1.3 % (0.0-3.0) Basophils (%) (Auto) 0.4 % (0.0-2.0) Sodium Level 141 MMOL/L (136-145) Potassium Level 3.6 MMOL/L (3.5-5.1) Chloride Level 104 MMOL/L (98-107) Carbon Dioxide Level 30 MMOL/L (21-32) Anion Gap 7 mmol/L (5-15) Blood Urea Nitrogen 16 mg/dL (7-18) Creatinine 1.1 MG/DL (0.55-1.30) Estimat Glomerular Filtration Rate > 60 mL/min (>60) Glucose Level 119 MG/DL (74-106) H Calcium Level 8.1 MG/DL (8.5-10.1) L Test 12/15/19 11:55 POC Whole Blood Glucose 124 MG/DL (74-106) H Microbiology Date/Time Source Procedure Growth Status 12/12/19 21:13 Nasopharynx SARS-CoV-2 RdRp Gene Assay - Final Complete Objective HEAD AND NECK: Showed no JVD or carotid bruits. LUNGS: Clear. CARDIOVASCULAR: Regular S1 and S2 with no gallop or murmur. ABDOMEN: Soft. EXTREMITIES: No pitting edema. S/P left ankle surgery Milton Bach MD Dec 15, 2019 15:58
[2019-12-15 16:00] VITALS: BP 128/69
--- NOTE | 2019-12-19 12:58 | Discharge Summary ---
Discharge Summary Discharge Summary _ Roselyn DATE OF ADMISSION: 12/12/2019 DATE OF DISCHARGE: 12/15/2019 DISCHARGED BY: Dr. Parker REASON FOR ADMISSION: 69 years old male with past medical history of diabetes mellitus, hypercholesterolemia, presented with left lower extremity pain. Patient reported a fall while walking. he twisted his ankles and subsequently fell. No loss of consciousness, no blackouts. Laboratory workup was unremarkable. Stable electrolytes and renal parameters. Glucose 201. Stable LFT. Albumin 3.9. Left ankle x-ray revealed trimalleolar fracture with associated slight subluxation of the tibiotalar joint. Chest x-ray revealed right perihilar atelectasis , no acute process otherwise. Neurovascularly he appealed to be intact. Patient was placed in a 3 sided splint. Patient received analgesic. Patient reported improvement in pain after splinting , elevation and analgesic. Patient subsequently admitted for further management. CONSULTANTS: memorial marker designer orthopedic surgeon Dr. Amaya [facility] COURSE: Patient admitted to medical surgical floor. Pain management was addressed. Orthopedic surgeon seen and evaluated patient and requested cardiology clearance for surgery. Patient denied any prior myocardial infarction or coronary artery disease ; no history of congestive heart failure. EKG revealed no acute ischemic changes ; left anterior fascicular block. Echocardiogram revealed preserved ejection fraction. Patient was cleared for surgery. Per memorial marker designer patient had non-syncopal fall, resulting in trimalleolar fracture. Patient subsequently undergone open reduction and internal fixation of left trimalleolar ankle fracture dislocation with plate and screw fixation and application of posterior splint. Patient tolerated procedure well. Blood sugar was closely monitored and remained stable. Blood sugar was managed with sliding scale insulin. Diabetic diet and diabetic teaching provided. Hemoglobin A1c 7.0 at goal. DVT prophylaxis provided. Bowel regimen instituted. Supportive care provided. Fall precautions maintained. Patient clinically stabilized and was ready for transfer to acute rehabilitation unit at [facility] for further management. FINAL DIAGNOSES: Non-syncopal fall resulting in trimalleolar fracture Left trimalleolar ankle fracture dislocation Status post open reduction and internal fixation of left trimalleolar ankle fracture dislocation, plate and screw fixation. Application of posterior splint. Diabetes melitis DISCHARGE MEDICATIONS: See Medication Reconciliation list. DISCHARGE INSTRUCTIONS: Patient was discharged to acute rehabilitation unit at [facility] for further management. I have been assigned to dictate discharge summary for this account. I was not involved in the patient's management. Ashley Fall NP Dec 19, 2019 12:58
== END 2019-12-15 21:30 | disposition short-term general hospital (02) | DRG 494 ==
LOC: EDBD 19:58 → EMR 20:05 → 3E 21:41 → EDBEDREQ 21:59
PROC: 0QSK04Z Reposition Left Fibula with Internal Fixation Device, Open Approach (ICD-10-PCS; principal; 2019-12-14 11:30)
PROC: 0QSH04Z Reposition Left Tibia with Internal Fixation Device, Open Approach (ICD-10-PCS; principal; 2019-12-14 11:30)
DX: S82.852A Displaced trimalleolar fracture of left lower leg, initial encounter for closed fracture (principal); W18.39XA Other fall on same level, initial encounter; E11.9 Type 2 diabetes mellitus without complications; I44.4 Left anterior fascicular block; Z79.84 Long term (current) use of oral hypoglycemic drugs
CPT/HCPCS: 36415; 71045; 76000; 80048; 80053; 82962; 83036; 85025; 85610; 85730; 93005; 93306; 94003; 94150; 96372; 99285; J1815; J2405; U0002